=== PATIENT | male | born 1995 | race Two or more races ===

== ENCOUNTER 2017-06-08 18:44 | Emergency (ER) | payer SELFPAY ==
[2017-06-08 18:53] VITALS: TEMP 98.1; BMI 22.0
--- NOTE | 2017-06-08 19:16 | PDOC ---
History of Present Illness - General History Source: Patient Exam Limitations: No Limitations - History of Present Illness Initial Comments: 06/08/17 19:26 The patient is a 22 year old male with no significant past medical history, who presents to the ED via EMS with SOB and palpitations. Patient went to work today even though his PCP advised him not to. While working he felt weak and ems was called and he was brought here. Symptoms have since resolved. Patient states he had lobster last night and started experiencing sweats and an itchy throat. He had benadryl after the incident and felt at baseline. Patient states he has had a similar allergic reaction in the past to eating shrimp. Patient denies fever, chills, nausea, vomiting, diarrhea. Patient denies any rashes. Denies any headaches. Patient denies drinking alcohol, smoking cigarettes, drug use. <Home Amador - Last Filed: 06/08/17 19:35> <Vannessa Acevedo - Last Filed: 06/12/17 02:05> - General Chief Complaint: Headache Stated Complaint: head ache,sob,dizzy s/p had allergic reaction x 1 Time Seen by Provider: 06/08/17 19:14 Past History <Home Amador - Last Filed: 06/08/17 19:35> - Past Medical History Other medical history: pt denies - Suicide/Smoking/Psychosocial Hx Smoking History: Never smoked Have you smoked in the past 12 months: No Hx Alcohol Use: No Drug/Substance Use Hx: No Substance Use Type: None <Vannessa Acevedo - Last Filed: 06/12/17 02:05> - Past Medical History Allergies/Adverse Reactions: Allergies Allergy/AdvReac Type Severity Reaction Status Date / Time vancomycin Allergy Rash Verified 06/08/17 18:47 shellfish derived AdvReac Severe Swelling Verified 06/08/17 18:47 Home Medications: Ambulatory Orders NK [No Known Home Medication] 06/08/17 Review of Systems - Review of Systems Able to Perform ROS?: Yes Comments:: 06/08/17 19:27 GENERAL/CONSTITUTIONAL: No fever or chills. No weakness. HEAD, EYES, EARS, NOSE AND THROAT: No change in vision. No ear pain or discharge. No sore throat. CARDIOVASCULAR: + SOB. + palpitations. No chest pain. RESPIRATORY: No cough, wheezing, or hemoptysis. GASTROINTESTINAL: No nausea, vomiting, diarrhea or constipation. GENITOURINARY: No dysuria, frequency, or change in urination. MUSCULOSKELETAL: No joint or muscle swelling or pain. No neck or back pain. SKIN: No rash NEUROLOGIC: No headache, vertigo, loss of consciousness, or change in strength/ sensation. ENDOCRINE: No increased thirst. No abnormal weight change. HEMATOLOGIC/LYMPHATIC: No anemia, easy bleeding, or history of blood clots. ALLERGIC/IMMUNOLOGIC: No hives or skin allergy. <Home Amador - Last Filed: 06/08/17 19:35> *Physical Exam - Vital Signs Last Vital Signs Temp Pulse Resp BP Pulse Ox 98.1 F 60 15 127/73 99 06/08/17 18:46 06/08/17 19:25 06/08/17 19:25 06/08/17 19:25 06/08/17 19:25 - Physical Exam Comments: 06/08/17 19:27 GENERAL: The patient is awake, alert, and fully oriented, in no acute distress. HEAD: Normal with no signs of trauma. EYES: Pupils equal, round and reactive to light, extraocular movements intact, sclera anicteric, conjunctiva clear. EXTREMITIES: Normal range of motion, no edema. NEUROLOGICAL: Normal speech, normal gait. PSYCH: Normal mood, normal affect. SKIN: Warm, Dry, normal turgor, no rashes or lesions noted. <Home Amador - Last Filed: 06/08/17 19:35> - Vital Signs Last Vital Signs Temp Pulse Resp BP Pulse Ox 98.1 F 61 16 124/80 100 06/08/17 18:46 06/08/17 18:46 06/08/17 18:46 06/08/17 18:46 06/08/17 18:46 <Vannessa Acevedo - Last Filed: 06/12/17 02:05> Medical Decision Making - Medical Decision Making Documentation has been prepared under my direction and personally reviewed by me in its entirety. I attest that this documented accurately reflects all work, treatment, procedures and medical decision making performed by me. As noted above, this otherwise healthy 22-year-old man presents with episode of weakness that occurred when he was at work. EMS was called. Recent history noted for symptoms of an ALLERGIC reaction last night when patient ate lobster ( patient has shellfish ALLERGY). He had been evaluated by his PMD and advise not to go to work; however he chose to work today and had the symptoms. Exam as noted shows no significant symptoms of ALLERGIC reaction or other acute process currently. Likely, the patient was mildly dehydrated and may have had some side effects secondary to the antihistamine that he had taken for his ALLERGIC reaction. Patient advised not to return to work tonight; he should have another dose of Benadryl before going to sleep tonight. If he feels any symptoms he should not go to work tomorrow and documentation as been provided for him. He should follow-up with his general doctor within the near future. She return to the emergency room if he has any symptoms consistent with an acute ALLERGIC reaction. <Vannessa Acevedo - Last Filed: 06/12/17 02:05> *DC/Admit/Observation/Transfer - Attestations Scribe Attestion: 06/08/17 19:30 Documentation prepared by Home Amador, acting as medical assistant dermatology for Vannessa Acevedo MD. <Home Amador - Last Filed: 06/08/17 19:35> <Vannessa Acevedo - Last Filed: 06/12/17 02:05> Diagnosis at time of Disposition: Allergic reaction, history of - Discharge Dispostion Disposition: HOME Condition at time of disposition: Stable - Patient Instructions Printed Discharge Instructions: DI for General Allergic Reactions Additional Instructions: Rest; drink plenty of fluids Take dose of Benadryl this evening Do not work tomorrow if you have any lightheadedness/weakness Return to ER if you have shortness of breath/wheezing/throat itching Follow-up with your general doctor within the next 48 hours - Post Discharge Activity Forms/Work/School Notes: Back to Work
[2017-06-08 19:28] VITALS: BP 127/73; PULSE 60
== END 2017-06-08 20:15 | disposition home or self-care (01) ==
LOC: FER 18:44
DX: T78.40XA Allergy, unspecified, initial encounter (principal); X58.XXXA Exposure to other specified factors, initial encounter
CPT/HCPCS: 99283-25

== ENCOUNTER 2018-12-16 12:08 | Emergency (ER) | payer OTHER ==
[2018-12-16 12:23] VITALS: BP 107/54; PULSE 61; TEMP 98.3; BMI 24.2
--- NOTE | 2018-12-16 12:57 | PDOC ---
History of Present Illness - General Chief Complaint: Wound Stated Complaint: LF HAND INJURY Time Seen by Provider: 12/16/18 12:39 - History of Present Illness Initial Comments: 12/16/18 12:55 23-year-old male without comorbidities presents for evaluation of a wound on his left middle finger. He states he had a laceration on his left middle finger was seen at another hospital the wound was not cleaned Dermabond the closed and today began to drain. He has no systemic symptoms. This occurred 6 days ago Past History - Past Medical History Allergies/Adverse Reactions: Allergies Allergy/AdvReac Type Severity Reaction Status Date / Time vancomycin Allergy Rash Verified 12/16/18 12:23 shellfish derived AdvReac Severe Swelling Verified 12/16/18 12:23 Home Medications: Ambulatory Orders NK [No Known Home Medication] 06/08/17 COPD: No - Suicide/Smoking/Psychosocial Hx Smoking History: Never smoked Have you smoked in the past 12 months: No Information on smoking cessation initiated: No Hx Alcohol Use: No Drug/Substance Use Hx: No Substance Use Type: None Review of Systems - Review of Systems Constitutional: No: Fever *Physical Exam - Vital Signs Last Vital Signs Temp Pulse Resp BP Pulse Ox 98.3 F 61 18 107/54 L 98 12/16/18 12:15 12/16/18 12:15 12/16/18 12:15 12/16/18 12:15 12/16/18 12:15 - Physical Exam Comments: 12/16/18 12:55 Left middle finger skin color and temperature are normal. There is a eschar formed with a small opening on the dorsum of the PIPJ of the left middle finger. There is no pain with passive motion or gross sensorimotor deficits. The wound is dry. There is no drainage on examination Medical Decision Making - Medical Decision Making 12/16/18 12:56 I've explained the situation to the patient. I've advised him to keep his wound clean with soap and water in the area left open to air. There is no indication of infection or septic joint today. I've have advised him to follow up with Dr. Ellington from hand surgery is well within the next 1-2 days. With instructions to return to the emergency room should his symptoms worsen. There is no reason for antibiotics today. *DC/Admit/Observation/Transfer Diagnosis at time of Disposition: Visit for wound check - Discharge Dispostion Disposition: HOME Condition at time of disposition: Stable Decision to Admit order: No - Referrals Referrals: Darryl Ellington MD [Staff Physician] - - Patient Instructions Additional Instructions: Return to the emergency room should he develop any increasing pain redness fever chills or night sweats. Follow-up with hand surgery in 1-2 days for further evaluation and treatment options. Keep the area clean with soap and water multiple times a day and left open to air. If you're working you may cover the area with a Band-Aid which is sterile. - Post Discharge Activity
== END 2018-12-16 13:00 | disposition home or self-care (01) ==
LOC: JERFT 12:08
DX: Z48.01 Encounter for change or removal of surgical wound dressing (principal)
CPT/HCPCS: 99281-25